=== PATIENT | female | born 1970 | race Caucasian/White ===

== ENCOUNTER → 2018-01-06 | Outpatient (CLI) | payer BC ==
--- NOTE | 2018-01-06 13:53 | MM ---
Reason for exam: screening (asymptomatic). Last mammogram was performed 7 years and 8 months ago. Physical Findings: A clinical breast exam by your physician is recommended on an annual basis and results should be correlated with mammographic findings. MG Screening Mammo w CAD Bilateral CC and MLO view(s) were taken. Prior study comparison: May 03, 2010, bilateral digital screening mammo w/CAD. August 04, 2003, bilateral mammogram, performed at [facility]. There are scattered fibroglandular densities. There is no discrete abnormality. No significant changes when compared with prior studies. ASSESSMENT: Negative, BI-RAD 1 RECOMMENDATION: Routine screening mammogram of both breasts in 1 year.
== END | disposition home or self-care (01) ==
LOC: RADMAMWWP 07:05
PROVIDERS: ATTEND Family Medicine
DX: Z12.31 Encounter for screening mammogram for malignant neoplasm of breast (principal)
CPT/HCPCS: 77067

== ENCOUNTER 2021-06-01 07:19 | Day surgery (SDC) | payer BC ==
[2021-05-30 12:44] VITALS: BMI 31.3
[~2021-06-01 07:19] MED LIST: LACTATED RINGERS 1,000 ML IV SCH; LIDOCAINE 1% (10MG/ML) FOR IV START INTRADERMA PRN; MIDAZOLAM 2 MG/2 ML VIAL IV PRN
--- NOTE | 2021-06-01 07:35 | P.GSHP ---
History of Present Illness H&P Date: 06/01/21 CHIEF COMPLAINT: Colon screen HISTORY OF PRESENT ILLNESS: The patient is a 50-year-old female who presents for colon screen. Lower endoscopy was offered for further evaluation and management. PAST MEDICAL HISTORY: Please see list. PAST SURGICAL HISTORY: Please see list. MEDICATIONS: Please see list. ALLERGIES: Please see list. SOCIAL HISTORY: No illicit drug use FAMILY HISTORY: No reports of Crohn disease or ulcerative colitis. REVIEW OF ORGAN SYSTEMS: CONSTITUTIONAL: No reports of fevers or chills. PHYSICAL EXAM: VITAL SIGNS: Stable GENERAL: Well-developed pleasant in no acute distress. HEENT: No scleral icterus. Extraocular movements grossly intact. Moist buccal mucosa. NECK: Supple without lymphadenopathy. CHEST: Unlabored respirations. Equal bilateral excursions. CARDIOVASCULAR: Regular rate and rhythm. Distal 2+ pulses. ABDOMEN: Soft, nontender, nondistended. MUSCULOSKELETAL: No clubbing, cyanosis, or edema. ASSESSMENT: 1. Colon screen. PLAN: 1. Recommend proceeding with a lower endoscopy Past Medical History Past Medical History: No Reported History History of Any Multi-Drug Resistant Organisms: None Reported Past Surgical History: Bariatric Surgery, Cholecystectomy Additional Past Surgical History / Comment(s): C-S. Dez-n-Y 2003 Past Anesthesia/Blood Transfusion Reactions: Previous Problems w/ Anesthesia, Family History of Problems w/ Anesthesia Additional Past Anesthesia/Blood Transfusion Reaction / Comment(s): Takes long time to awaken, her sisters are the same. Smoking Status: Never smoker - Past Family History Father Family Medical History: Cancer Additional Family Medical History / Comment(s): lung cancer Brother(s) Family Medical History: Deep Vein Thrombosis (DVT), Pulmonary Embolus Additional Family Medical History / Comment(s): post-op blood clots, obese Medications and Allergies Home Medications Medication Instructions Recorded Confirmed Type Glucosamine (Unknown Dose) 1 tab PO DAILY 05/30/21 History Allergies Allergy/AdvReac Type Severity Reaction Status Date / Time codeine AdvReac Nausea & Verified 05/30/21 12:20 Vomiting
[2021-06-01 07:48] VITALS: TEMP 97.4
[2021-06-01] MEDS ORDERED: PROPOFOL 10 MG/ML 20 ML VIAL IV ONE (07:59)
--- NOTE | 2021-06-01 08:31 | P.PCN ---
Date of Procedure: 06/01/21 Description of Procedure: PREOPERATIVE DIAGNOSIS: Colonoscopy screening. POSTOPERATIVE DIAGNOSIS: Colonoscopy screening. Diverticulosis, scattered. OPERATION: Colonoscopy to the cecum, ileocecal valve and appendiceal orifice. SURGEON: Modesta Hyde MD. ANESTHESIA: MAC. INDICATIONS: The patient is a 50-year-old female who presents for her first colonoscopy screening. Benefits and risks were described and informed consent was obtained. DESCRIPTION OF PROCEDURE: The patient had undergone Sutab prep. The patient had been brought into the operating room and laid in the left lateral decubitus position. After adequate intravenous sedation, the rectum was examined with 2% lidocaine jelly. No ex ternal hemorrhoids were encountered. The rectal tone was within normal limits. No lesions were palpated in the rectal vault. An Olympus colonoscope was advanced until the cecum, ileocecal valve and appendiceal orifice were clearly viewed. The prep was excellent. Scattered diverticulosis was encountered. No colonic polyps were found. No evidence of focal colitis was found. Retroflexion of the scope demonstrated grade 1 internal hemorrhoids without active bleeding or inflammation. The colon was desufflated. The patient had tolerated the procedure well. Withdrawal time was over 6 minutes. FINDINGS: Aronchick preparation quality scale 1 (1-5) Internal hemorrhoids, grade 1 No external prolapsed hemorrhoids. No arteriovenous malformations. No adenomatous polyps. No focal colitis. Scattered diverticulosis RECOMMENDATIONS: Lower endoscopy in 10 2031 Plan - Discharge Summary Discharge Rx Participant: No New Discharge Prescriptions: Continue Glucosamine (Unknown Dose) 1 tab PO DAILY Discharge Medication List Glucosamine (Unknown Dose) 1 tab PO DAILY 05/30/21 [History] Follow up Appointment(s)/Referral(s): Modesta Hyde MD [STAFF PHYSICIAN] - As Needed Patient Instructions/Handouts: Diverticulosis Diet (GEN), Diverticulosis (DC) Activity/Diet/Wound Care/Special Instructions: Repeat colonoscopy in 10 years2031 Discharge Disposition: HOME SELF-CARE
[2021-06-01 08:43] VITALS: BP 118/84; PULSE 67; RESP 16
== END 2021-06-01 09:00 | disposition home or self-care (01) ==
LOC: ORWHC2ENDO 07:19
PROVIDERS: ATTEND Surgery Plastic and Reconstructive Surgery
DX: Z12.11 Encounter for screening for malignant neoplasm of colon (principal); K57.30 Diverticulosis of large intestine without perforation or abscess without bleeding; K64.0 First degree hemorrhoids
CPT/HCPCS: J2704; G0121

== ENCOUNTER → 2023-02-18 | Outpatient (CLI) | payer BC ==
--- NOTE | 2023-02-19 21:24 | MM ---
Reason for Exam: Screening (asymptomatic). Last mammogram was performed 5 year(s) and 2 month(s) ago. Patient History: Menarche at age 10. First Full-Term at age 29. Late child-bearing (after 30). Postmenopausal. Risk Values: Enedina 5 year model risk: 1.6%. NCI Lifetime model risk: 11.4%. Prior Study Comparison: 08/04/2003 Bilateral Screening Mammogram, [facility]. 05/03/2010 Bilateral Screening Mammogram, [facility]. 01/06/2018 Bilateral Screening Mammogram, [facility]. Tissue Density: There are scattered fibroglandular densities. Findings: Analyzed By CAD. There is no suspicious group of microcalcifications or new suspicious mass in either breast. Overall Assessment: Negative, BI-RAD 1 Management: Screening Mammogram of both breasts in 1 year. . Patient should continue monthly self-breast exams. A clinical breast exam by your physician is recommended on an annual basis. This exam should not preclude additional follow-up of suspicious palpable abnormalities. Note on Enedina scores and lifetime risk: 1. A Enedina score greater than 3% is considered moderate risk. If this is the case, consider specialist referral to assess eligibility for a risk reducing agent. 2. If overall lifetime risk for the development of breast cancer is 20% or higher, the patient may qualify for future screening with alternating mammogram and breast MRI. Electronically signed and approved by: Yue Gordon M.D. Radiologist
== END | disposition home or self-care (01) ==
LOC: RADMAMWWP 14:59
PROVIDERS: ATTEND Family Medicine
DX: Z12.31 Encounter for screening mammogram for malignant neoplasm of breast (principal); Z78.0 Asymptomatic menopausal state
CPT/HCPCS: 77063; 77067

== ENCOUNTER 2023-08-28 12:26 | Inpatient (IN) | payer BC ==
--- NOTE | 2023-08-28 13:25 | CT ---
EXAMINATION TYPE: CT hip LT wo con DATE OF EXAM: 08/28/2023 COMPARISON: None HISTORY: left hip pain, no injury CT DLP: 633.1 mGycm Automated exposure control for dose reduction was used. Contrast: None Technique: Axial images 3 mm thick sections. Reconstructed images in the coronal and sagittal planes 3-D reconstructed images performed on a separate computerized technologist are reviewed. FINDINGS: There is an extremely subtle lucency extending from the greater trochanter through the intertrochante dk region that are visualized more anteriorly. A nondisplaced intertrochanteric fracture appears to be present. This may be comminuted with a nondisplaced avulsion of the greater trochanter. Correlate with patient's symptoms IMPRESSION: 1. NONDISPLACED INTERTROCHANTERIC FRACTURE. 2. THERE MAY BE NONDISPLACED FRACTURE OF THE GREATER TROCHANTER.
[2023-08-28 14:08] LABS: Basophils % (A) 1 %; Eosinophils # (A) 0.2 k/uL (0-0.7); Eosinophils % (A) 4 %; HGB 11.7 gm/dL (11.4-16.0); Lymphocytes # (A) 1.5 k/uL (1.0-4.8); Lymphocytes % (A) 31 %; MCH 32.4 pg (25.0-35.0); MCHC 33.4 g/dL (31.0-37.0); Mean Platelet Volume 8.1; Monocytes # (A) 0.3 k/uL (0-1.0); Monocytes % (A) 7 %; Neutrophils # (A) 2.7 k/uL (1.3-7.7); Neutrophils % (A) 56 %; Platelet Count 264 k/uL (150-450); RBC 3.61 m/uL (3.80-5.40); RDW 12.4 % (11.5-15.5); WBC 4.9 k/uL (3.8-10.6)
[2023-08-28] MEDS ORDERED: NALOXONE 0.4 MG/ML 1 ML VIAL IV PRN (14:25)
--- NOTE | 2023-08-28 14:25 | ED ---
Lower Extremity Injury HPI - General Chief Complaint: Extremity Injury, Lower Stated Complaint: L Broken Hip Time Seen by Provider: 08/28/23 12:35 Source: patient Mode of arrival: ambulatory Limitations: no limitations - History of Present Illness Initial Comments: 53-year-old female who presents to the emergency department reporting left hip pain. States that the pain has been going on for the past 3 weeks and started while she was exercising. She denies any trauma. Patient has been taking pain medications and muscle relaxers however that has not helped her symptoms. Patient traveled to [facility] for vacation and was seen by a physician there for cortisone shot. She reports this also did not help her symptoms. She followed with Dr. Guerrero this morning where an x-ray was completed and he was concerned for hip fracture. Patient was transferred to our facility for CT. - Related Data Home Medications Medication Instructions Recorded Confirmed Naltrexone HCl/Bupropion HCl 2 tab PO BID 08/28/23 08/28/23 [Contrave ER 8-90 mg Tablet] Previous Rx's Medication Instructions Recorded Aspirin 81 mg PO BID #60 tab 08/29/23 Docusate [Colace] 100 mg PO BID #60 capsule 08/29/23 HYDROcodone/APAP 5-325MG [[place] 1 - 2 tab PO Q6HR PRN #32 tab 08/29/23 5-325] Ergocalciferol [Vitamin D2 (1250 1,250 mcg PO Q7D 6 Days #6 cap 08/30/23 Mcg = 01276 Iu)] Allergies Allergy/AdvReac Type Severity Reaction Status Date / Time codeine AdvReac Nausea & Verified 08/28/23 14:15 Vomiting Review of Systems ROS Statement: Those systems with pertinent positive or pertinent negative responses have been documented in the HPI. ROS Other: All systems not noted in ROS Statement are negative. Past Medical History Past Medical History: No Reported History History of Any Multi-Drug Resistant Organisms: None Reported Past Surgical History: Bariatric Surgery, Cholecystectomy Additional Past Surgical History / Comment(s): Cassie Dez-n-Y 2003 Past Anesthesia/Blood Transfusion Reactions: Previous Problems w/ Anesthesia, Family History of Problems w/ Anesthesia Additional Past Anesthesia/Blood Transfusion Reaction / Comment(s): Takes long time to awaken, her sisters are the same. Smoking Status: Never smoker Past Alcohol Use History: None Reported Past Drug Use History: None Reported - Past Family History Father Family Medical History: Cancer Additional Family Medical History / Comment(s): lung cancer Brother(s) Family Medical History: Deep Vein Thrombosis (DVT), Pulmonary Embolus Additional Family Medical History / Comment(s): post-op blood clots, obese General Exam Limitations: no limitations General appearance: alert, in no apparent distress Head exam: Present: atraumatic, normocephalic, normal inspection Eye exam: Present: normal appearance, PERRL, EOMI. Absent: scleral icterus, conjunctival injection, periorbital swelling ENT exam: Present: normal exam, mucous membranes moist Neck exam: Present: normal inspection. Absent: tenderness, meningismus, lymphadenopathy Respiratory exam: Present: normal lung sounds bilaterally. Absent: respiratory distress, wheezes, rales, rhonchi, stridor Cardiovascular Exam: Present: regular rate, normal rhythm, normal heart sounds. Absent: systolic murmur, diastolic murmur, rubs, gallop, clicks GI/Abdominal exam: Present: soft, normal bowel sounds. Absent: distended, tenderness, guarding, rebound, rigid Extremities exam: Present: tenderness (To palpation of the left hip and inguinal region. Decreased range of motion due to pain), normal capillary refill. Absent: pedal edema, joint swelling, calf tenderness Back exam: Present: normal inspection Neurological exam: Present: alert, oriented X3, CN II-XII intact Psychiatric exam: Present: normal affect, normal mood Skin exam: Present: warm, dry, intact, normal color. Absent: rash Course Vital Signs 08/28/23 08/28/23 12:33 15:56 Temperature 98.2 F Pulse Rate 79 81 Respiratory 18 14 Rate Blood Pressure 121/71 123/74 O2 Sat by Pulse 99 99 Oximetry Medical Decision Making - Medical Decision Making Was pt. sent in by a medical professional or institution (, PA, [employer], urgent care, hospital, or alf...) When possible be specific @ -Patient was sent in by Dr. Guerrero Did you speak to anyone other than the patient for history (EMS, parent, family, police, friend...)? What history was obtained from this source @ -No Did you review nursing and triage notes (agree or disagree)? Why? @ -I reviewed and agree with nursing and triage notes Were old charts reviewed (outside hosp., previous admission, EMS record, old EKG, old radiological studies, urgent care reports/EKG's, alf records)? Report findings @ -No old charts were reviewed Differential Diagnosis (chest pain, altered mental status, abdominal pain women, abdominal pain men, vaginal bleeding, weakness, fever, dyspnea, syncope, headache, dizziness, GI bleed, back pain, seizure, CVA, palpatations, mental health, musculoskeletal)? @ -Differential Musculoskeletal Muscular strain, contusion, ligament sprain, fracture, arthritis, septic arthritis, bursitis, cellulitis, muscle spasm, nerve compression, DVT, arterial occlusion, herpes zoster, electrolyte abnormality, tumor.... This is not meant to be in all inclusive list EKG interpreted by me (3pts min.). @ -Not done X-rays interpreted by me (1pt min.). @ -Yes and demonstrates left hip fracture CT interpreted by me (1pt min.). @ -None done U/S interpreted by me (1pt. min.). @ -None done What testing was considered but not performed or refused? (CT, X-rays, U/S, labs)? Why? @ -None What meds were considered but not given or refused? Why? @ -None Did you discuss the management of the patient with other professionals (professionals i.e. , PA, [employer], lab, RT, psych nurse, social sciences department chair, escrow officer, teacher, physics technical officer, residential case manager)? Give summary @ -Spoke with Dr. Guerrero who will admit the patient to his service Was smoking cessation discussed for >3mins.? @ -No Was critical care preformed (if so, how long)? @ -No Were there social determinants of health that impacted care today? How? (Homelessness, low income, unemployed, alcoholism, drug addiction, transportation, low edu. Level, literacy, decrease access to med. care, chcf, rehab)? @ -No Was there de-escalation of care discussed even if they declined (Discuss DNR or withdrawal of care, Hospice)? DNR status @ -No What co-morbidities impacted this encounter? (DM, HTN, Smoking, COPD, CAD, Cancer, CVA, ARF, Chemo, Hep., AIDS, mental health diagnosis, sleep apnea, morbid obesity)? @ -None Was patient admitted / discharged? Hospital course, mention meds given and route, prescriptions, significant lab abnormalities, going to OR and other p ertinent info. @ -Upon arrival patient seen and evaluated in room 23. Thorough history and physical exam was performed. CT was obtained. Called and spoke with Dr. Guerrero who will admit the patient Undiagnosed new problem with uncertain prognosis? @ -No Drug Therapy requiring intensive monitoring for toxicity (Heparin, Nitro, Insulin, Cardizem)? @ -No Were any procedures done? @ -No Diagnosis/symptom? @ -Acute left hip pain, acute left hip fracture Acute, or Chronic, or Acute on Chronic? @ -Acute Uncomplicated (without systemic symptoms) or Complicated (systemic symptoms)? @ -Complicated Side effects of treatment? @ -No Exacerbation, Progression, or Severe Exacerbation? @ -No Poses a threat to life or bodily function? How? (Chest pain, USA, PA, pneumonia, PE, COPD, DKA, ARF, appy, cholecystitis, CVA, Diverticulitis, Homicidal, Suicidal, threat to staff... and all critical care pts) @ -No - Lab Data Result diagrams: 08/30/23 14:52 08/31/23 10:01 Lab Results 08/28/23 08/28/23 08/28/23 Range/Units 13:52 13:52 13:52 WBC 4.9 (3.8-10.6) k/uL RBC 3.61 L (3.80-5.40) m/uL Hgb 11.7 (11.4-16.0) gm/dL Hct 35.0 (34.0-46.0) % MCV 97.0 (80.0-100.0) fL MCH 32.4 (25.0-35.0) pg MCHC 33.4 (31.0-37.0) g/dL RDW 12.4 (11.5-15.5) % Plt Count 264 (150-450) k/uL MPV 8.1 Neutrophils % 56 % Lymphocytes % 31 % Monocytes % 7 % Eosinophils % 4 % Basophils % 1 % Neutrophils # 2.7 (1.3-7.7) k/uL Lymphocytes # 1.5 (1.0-4.8) k/uL Monocytes # 0.3 (0-1.0) k/uL Eosinophils # 0.2 (0-0.7) k/uL Basophils # 0.0 (0-0.2) k/uL APTT 22.7 (22.0-30.0) sec Sodium 132 L (137-145) mmol/L Potassium 4.9 (3.5-5.1) mmol/L Chloride 102 (98-107) mmol/L Carbon Dioxide 25 (22-30) mmol/L Anion Gap 5 mmol/L BUN 14 (7-17) mg/dL Creatinine 0.52 (0.52-1.04) mg/dL Est GFR (CKD-EPI)AfAm >90 (>60 ml/min/1.73 sqM) Est GFR (CKD-EPI)NonAf >90 (>60 ml/min/1.73 sqM) Glucose 82 (74-99) mg/dL Calcium 9.4 (8.4-10.2) mg/dL Total Bilirubin 0.9 (0.2-1.3) mg/dL AST 34 (14-36) U/L ALT 21 (4-34) U/L Alkaline Phosphatase 88 (38-126) U/L Total Protein 7.0 (6.3-8.2) g/dL Albumin 4.0 (3.5-5.0) g/dL Disposition Clinical Impression: Intertrochanteric fracture of left hip Disposition: ADMITTED IP TO THIS HOSP Condition: Stable Is patient prescribed a controlled substance at d/c from ED?: No Time of Disposition: 14:25 Decision to Admit Reason: Admit from EC Decision Date: 08/28/23 Decision Time: 14:25
[2023-08-28 14:35] LABS: ALT 21 U/L (4-34); African American GFR (CKD) >90 (>60 ml/min/1.73 sqM); Anion Gap 5 mmol/L; Blood Urea Nitrogen 14 mg/dL (7-17); Calcium 9.4 mg/dL (8.4-10.2); Carbon Dioxide 25 mmol/L (22-30); Chloride 102 mmol/L (98-107); Glucose 82 mg/dL (74-99); Non-African American GFR(CKD) >90 (>60 ml/min/1.73 sqM); Sodium 132 mmol/L (137-145); Total Bilirubin 0.9 mg/dL (0.2-1.3)
[2023-08-28 14:53] LABS: AST 34 U/L (14-36); Potassium 4.9 mmol/L (3.5-5.1)
[2023-08-28 14:54] LABS: Alkaline Phosphatase 88 U/L (38-126)
[2023-08-28] MEDS: MORPHINE SULFATE 4 MG/ML SYRINGE IV PRN (16:20)
[2023-08-28] MEDS: HYDROcodone/APAP 5-325MG 1 EACH TAB PO PRN (17:46)
--- NOTE | 2023-08-28 19:15 | US ---
EXAMINATION TYPE: US venous doppler duplex LE DATE OF EXAM: 08/28/2023 4:24 PM COMPARISON: NONE CLINICAL INDICATION: Female, 53 years old with history of rule out DVT, subacute hip fracture; Fractu red hip, pain SIDE PERFORMED: Bilateral TECHNIQUE: The lower extremity deep venous system is examined utilizing real time linear array sonog marty with graded compression, doppler sonography and color-flow sonography. VESSELS IMAGED: Common Femoral Vein Deep Femoral Vein Greater Saphenous Vein * Femoral Vein Popliteal Vein Small Saphenous Vein * Proximal Calf Veins (* superficial vessels) Right Leg: Negative for DVT Left Leg: Negative for DVT IMPRESSION: Grayscale, color doppler, spectral doppler imaging performed of the deep veins of the lo wer extremities. There is normal flow, compressibility, vascular waveforms.
[2023-08-28] MEDS: HYDROmorphone 1 MG/ML 1 ML SYRINGE IVP PRN (22:35)
[2023-08-29] MEDS: SODIUM CHLORIDE 0.9% 1,000 ML IV SCH ×2 (08:43→22:03)
--- NOTE | 2023-08-29 09:35 | P.HPOR ---
History of Present Illness the patient is a very pleasant relatively healthy 53-year-old female who has had 2 weeks of atraumatic left hip pain. The patient states that she has been working out to lose weight but denies any specific injury. Despite the intr actable pain in her hip she went on vacation to [facility] last week and was essentially wheelchair-bound. She presented to my office yesterday where x-rays showed a displaced hip fracture. She was sent as a direct admit to the emergency department. I met with the patient in the hospital to discuss her computed tomography scan and treatment options. Past Medical History Past Medical History: No Reported History History of Any Multi-Drug Resistant Organisms: None Reported Past Surgical History: Bariatric Surgery, Cholecystectomy Additional Past Surgical History / Comment(s): Cassie Marinellix-n-Elder 2003 Past Anesthesia/Blood Transfusion Reactions: Previous Problems w/ Anesthesia, Family History of Problems w/ Anesthesia, Postoperative Nausea & Vomiting (PONV) Additional Past Anesthesia/Blood Transfusion Reaction / Comment(s): Takes long time to awaken, her sisters are the same. Smoking Status: Never smoker Past Alcohol Use History: None Reported Past Drug Use History: None Reported - Past Family History Father Family Medical History: Cancer Additional Family Medical History / Comment(s): lung cancer Brother(s) Family Medical History: Deep Vein Thrombosis (DVT), Pulmonary Embolus Additional Family Medical History / Comment(s): post-op blood clots, obese Medications and Allergies Home Medications Medication Instructions Recorded Confirmed Type Naltrexone HCl/Bupropion HCl 2 tab PO BID 08/28/23 08/28/23 History [Contrave ER 8-90 mg Tablet] Allergies Allergy/AdvReac Type Severity Reaction Status Date / Time codeine AdvReac Nausea & Verified 08/28/23 14:15 Vomiting Physical Examination the patient is resting comfortably in her hospital bed. She is alert and able to answer questions. Her head is normocephalic and atraumatic. Her cervical spine is nontender and midline. She damages nonlabored breathing with symmetric chest expansion. Her abdomen is soft and mildly obese. She has palpable peripheral pulses. Exam of the bilateral upper extremities and right lower extremity show no obvious deformities and no pain or tenderness. A focused exam of the left lower extremity was conducted. On inspection there are no skin lesions or scars. She has exquisite pain with any attempts at passive range of motion of the left hip. She is tender over the greater trochanter. Her thigh and calf are soft. She is able to actively plantar flex and dorsiflex her ankle and her toes. Sensation is intact to light touch throughout the left foot. The foot is warm and well perfused with brisk capillary refill Results x-rays from my office and computed tomography scan from the hospital show a minimally displaced and impacted basocervical intertrochanteric hip fracture. - Labs Labs: Abnormal Lab Results - Last 24 Hours (Table) 08/28/23 08/28/23 Range/Units 13:52 13:52 RBC 3.61 L (3.80-5.40) m/uL Sodium 132 L (137-145) mmol/L H & H 08/28/23 Range/Units 13:52 Hgb 11.7 (11.4-16.0) gm/dL Hct 35.0 (34.0-46.0) % Result Diagrams: 08/28/23 13:52 08/28/23 13:52 Assessment and Plan Assessment: subacute left basicervical hip fracture Plan: I long discussion with the patient both in the office and hospital on treatment options. She has a subacute hip fracture. Based on the location of the fracture it appears to be extracapsular. My recommendation was to perform an attempt at closed reduction and placement of intramedullary hip screw. We dis cussed the procedure at length including the potential risks and complications. The patient understands the possibility of these complications and provided both her verbal and written consent to go forward with surgery. She'll remain strictly nonweightbearing and on bedrest until surgery. Internal medicine is been consulted for perioperative medical management. Time with Patient: Greater than 30
[2023-08-29] MEDS: hydrOXYzine pamoate 25 MG CAP PO PRN (10:38)
[2023-08-29 10:47] LABS: BUN/Creat Ratio 18.57 Ratio (12.00-20.00); Calcium 9.3 mg/dL (8.7-10.3); Carbon Dioxide 22.6 mmol/L (21.6-31.8); Chloride 101 mmol/L (96-109); Glucose 92 mg/dL (70-110); Potassium 4.4 mmol/L (3.5-5.5); Sodium 135 mmol/L (135-145)
[2023-08-29 10:52] LABS: Basophils # (A) 0.02 X 10*3/uL (0.00-0.10); Basophils % (A) 0.4 %; Eosinophils # (A) 0.14 X 10*3/uL (0.04-0.35); Eosinophils % (A) 2.9 %; HCT 33.2 % (37.2-46.3); Lymphocytes % (A) 18.8 %; MCH 32.3 pg (27.0-32.0); MCHC 33.1 g/dL (32.0-37.0); MCV 97.4 FL (80.0-97.0); Mean Platelet Volume 10.7 FL (9.5-12.2); Monocytes # (A) 0.42 X 10*3/uL (0.20-1.00); Monocytes % (A) 8.8 %; NRBC Per 100 WBC 0 X 10*3/uL (0.00-0.01); Neutrophils # (A) 3.29 X 10*3/uL (1.80-7.70); Neutrophils % (A) 68.9 %; Platelet Count 244 X 10*3/uL (140-440); RBC 3.41 X 10*6/uL (4.10-5.20); RDW 12.3 % (11.5-14.5); WBC 4.78 X 10*3/uL (4.50-10.00)
--- NOTE | 2023-08-29 12:28 | P.CONS ---
History of Present Illness - Reason for Consult Consult date: 08/29/23 Medical Pre-op Clearance and medical post-op managment Requesting physician: José Luis Guerrero - History of Present Illness History of Presenting Illness: Patient is a pleasant 53-year-old female with no reported past medical history. She presented to the emergency department on 08/28/2023 secondary to reports of left hip pain and inability to ambulate. Patient reports recently starting a workout program running on treadmill and weightlifting as directed by her personal lines advisor. She states she traveled to [facility] and left hip pain worsened resulting in worsening inability to ambulate. Patient denies having any injuries or falls or any other complaints at this time. Upon arrival to our facility, patient underwent evaluation in the emergency department. Vital signs upon arrival show blood pressure 121/71, heart rate 79, respiratory rate 18, temp 98.2 F, and SpO2 of 99% on room air. CT left hip completed showing a nondisplaced intertrochanteric fracture of left hip. Bilateral lower extremity Dopplers were completed negative for DVT. EKG completed showing normal sinus rhythm at 77 bpm inversion in inferior leads III otherwise showing no significant T wave or ST abnormalities showing no signs of acute ischemia. Labs were completed and reviewed. CBC unremarkable. PTT normal findings. BMP revealed mild hyponatremia with sodium of 132 otherwise normal findings. Liver profile unremarkable. Patient admitted under orthopedic surgery team and we were consulted for medical clearance and postoperative medical management. Review of systems: Pertinent positives and negatives as discussed in HPI, a complete review of systems was performed and all other systems are negative. Physical exam: Vital signs reviewed and stable. General: Nontoxic, no distress and appears stated age. Derm: Skin warm and dry, normal coloration for ethnicity. Head: Atraumatic, normocephalic and symmetric. Eyes: EOMs intact, no lid lag, and anicteric sclera Mouth: no lip lesions, mucus membranes moist Cardiovascular: regular rate and rhythm with normal S1S2, no murmur, positive posterior tibial pulses bilaterally, and cap refill < 2 seconds. Lungs: Respirations even, regular, and unlabored on room air. Lungs CTA bilaterally, no rhonchi, no rales, no wheezing, and no accessory muscle usage. Abdominal: soft, nontender to palpation, no guarding, no appreciable organomegaly Ext: No gross muscle atrophy, no edema, no contractures. Movement and sensation intact. Neuro: Speech clear, face symmetrical and CN II-XII grossly intact with no noted focal neuro deficits Psych: Alert and oriented to person, place, time, and situation. Appropriate and pleasant affect. Assessment and Plan of Care: Presurgical clearance: Nontraumatic displaced left hip METS greater than 4. NSQIP surgical risk calculator scoring completed. Patient at a below average risk to undergo left hip gamma nail insertion for displaced left hip fracture. NSQIP surgical risk showing patient at a below average risk at 3.1% with average risk being 8.5% for serious complications, below average risk at 0.1% with average risk of 1.2% for cardiac complications, and a below average risk of 0.8% with average risk of 3.3% for . As stated above, patient had a below average risk to proceed with recommended gamma nail insertion for displaced left hip fracture. Patient is medically optimized for surgery at this time with no need for further testing. Abnormal EKG EKG showing inferior T wave inversion in leads III otherwise normal findings. Patient free from any cardiac complaints. Hyponatremia Continue gentle IV fluid hydration with 0.9% normal saline at 100 cc/h. Data and Imaging reviewed: As stated above in HPI. Thank you for allowing us to participate in the care of this pleasant patient. Do not hesitate to contact us with questions. Someone can be reached from the [facility] hospitalist group all hours of the day at [phone] or via EV Connect. Patient was seen independently by Nurse Practitioner. This document was prepared using [employer] dictation software. Please allow for errors in career orientation teacher while rare they do occur. I reviewed the documentation as provided by the BREANA above, who is the original author of this note. I agree with the documented assessment and plan, with the following changes: none Past Medical History Past Medical History: No Reported History History of Any Multi-Drug Resistant Organisms: None Reported Past Surgical History: Bariatric Surgery, Cholecystectomy Additional Past Surgical History / Comment(s): Cassie Dez-n-Y 2003 Past Anesthesia/Blood Transfusion Reactions: Previous Problems w/ Anesthesia, Family History of Problems w/ Anesthesia, Postoperative Nausea & Vomiting (PONV) Additional Past Anesthesia/Blood Transfusion Reaction / Comm: Takes long time to awaken, her sisters are the same. Smoking Status: Never smoker Past Alcohol Use History: None Reported Past Drug Use History: None Reported - Past Family History Father Family Medical History: Cancer Additional Family Medical History / Comment(s): lung cancer Brother(s) Family Medical History: Deep Vein Thrombosis (DVT), Pulmonary Embolus Additional Family Medical History / Comment(s): post-op blood clots, obese Medications and Allergies Home Medications Medication Instructions Recorded Confirmed Type Naltrexone HCl/Bupropion HCl 2 tab PO BID 08/28/23 08/28/23 History [Contrave ER 8-90 mg Tablet] Aspirin 81 mg PO BID #60 tab 08/29/23 Rx Docusate [Colace] 100 mg PO BID #60 capsule 08/29/23 Rx HYDROcodone/APAP 5-325MG [[place] 1 - 2 tab PO Q6HR PRN #32 tab 08/29/23 Rx 5-325] Ergocalciferol [Vitamin D2 (1250 1,250 mcg PO Q7D 6 Days #6 cap 08/30/23 Rx Mcg = 79199 Iu)] Allergies Allergy/AdvReac Type Severity Reaction Status Date / Time codeine AdvReac Nausea & Verified 08/28/23 14:15 Vomiting Physical Exam Vitals: Vital Signs Temp Pulse Pulse Pulse Resp BP BP 08/29/23 06:59 98.7 F 78 18 120/85 08/29/23 00:57 98.2 F 77 17 109/73 08/28/23 21:07 98.1 F 68 15 101/64 08/28/23 15:56 81 14 123/74 08/28/23 12:33 98.2 F 79 18 121/71 Pulse Ox 08/29/23 06:59 98 08/29/23 00:57 98 08/28/23 21:07 94 L 08/28/23 15:56 99 08/28/23 12:33 99 Intake and Output 08/28/23 08/29/23 08/29/23 22:59 06:59 14:59 Output Total 032 447 8718 Balance -750 -950 -1200 Output: Urine 059 571 5024 Other: Voiding Method Indwelling Catheter Weight 77.111 kg Results CBC & Chem 7: 08/30/23 14:52 08/31/23 10:01 Labs: Abnormal Lab Results - Last 24 Hours (Table) 08/28/23 08/28/23 08/29/23 Range/Units 13:52 13:52 06:47 RBC 3.61 L 3.41 L (3.80-5.40) m/uL Hgb 11.0 L (12.0-15.0) g/dL Hct 33.2 L (37.2-46.3) % MCV 97.4 H (80.0-97.0) FL MCH 32.3 H (27.0-32.0) pg Sodium 132 L (137-145) mmol/L
[2023-08-29] MEDS: NON FORMULARY DRUG (Naltrexone Hcl/Bupropion Hcl [Contrave Er 8-90 Mg Tablet] 1 EACH Table PO SCH (12:43)
[2023-08-29] MEDS: ONDANSETRON 4 MG/2 ML VIAL IVP STA (16:05)
[2023-08-29] MEDS: LACTATED RINGERS 1,000 ML BAG IV STA (16:05)
[2023-08-29] MEDS: MIDAZOLAM 2 MG/2 ML VIAL IV ONE (16:06)
[2023-08-29] MEDS: DEXAMETHASONE SOD PHOSPHATE 4 MG/ML 1 ML VIAL IVP STA (16:06)
[2023-08-29] MEDS: IV FLUID CONTINUATION 1,000 ML IV ONE (16:18)
[2023-08-29] MEDS ORDERED: PROPOFOL 10 MG/ML 20 ML VIAL IV ONE (17:03)
[2023-08-29] MEDS ORDERED: NEOSTIGMINE 1 MG/ML 10 ML VIAL ONE (17:03)
[2023-08-29] MEDS ORDERED: HYDROmorphone (PF) 1 MG/ML ONE (17:03)
[2023-08-29] MEDS ORDERED: ROCURONIUM 10 MG/ML (5 ML VIAL) IV ONE (17:03)
[2023-08-29] MEDS ORDERED: ROPIVACAINE 5 MG/ML 30 ML VIAL ONE (17:03)
[2023-08-29] MEDS ORDERED: fentaNYL (PF) 50 MCG/ML 2 ML AMP ONE (17:03)
[2023-08-29] MEDS ORDERED: ceFAZolin 1 GM/50 ML BAG (PMX) ONE (17:03)
[2023-08-29] MEDS ORDERED: LIDOCAINE 1% INJ 10MG/ML (20 ML MDV) ONE (17:03)
[2023-08-29] MEDS ORDERED: DEXAMETHASONE SOD PHOSPHATE 4 MG/ML 1 ML VIAL ONE (17:03)
[2023-08-29] MEDS ORDERED: MIDAZOLAM 2 MG/2 ML VIAL ONE (17:03)
[2023-08-29] MEDS ORDERED: GLYCOPYRROLATE 0.2 MG/ML 2 ML VIAL ONE (17:03)
[2023-08-29] MEDS ORDERED: TRANEXAMIC 1,000 MG/100ML-NACL PREMIX BAG ONE (17:03)
[2023-08-29] MEDS ORDERED: SUCCINYLCHOLINE CHLORIDE 200 MG/10 ML VIAL IV ONE (17:03)
[2023-08-29] MEDS: SODIUM CHLORIDE 0.9% 50 ML with ceFAZolin 2,000 MG IV ONE (17:07)
[2023-08-29] MEDS ORDERED: HYDROmorphone 1 MG/ML 1 ML SYRINGE IVP PRN (18:24)
[2023-08-29] MEDS ORDERED: MAGNESIUM HYDROXIDE 2,400 MG/30 ML CUP PO PRN (18:24)
[2023-08-29] MEDS ORDERED: ONDANSETRON 4 MG/2 ML VIAL IVP PRN (18:24)
[2023-08-29] MEDS ORDERED: NALOXONE 0.4 MG/ML 1 ML VIAL IV PRN (18:24)
--- NOTE | 2023-08-29 18:24 | P.OP ---
Date of Procedure: 08/29/23 Preoperative Diagnosis: Subacute left basicervical hip fracture Postoperative Diagnosis: Same Procedure(s) Performed: Operative fixation of left intertrochanteric hip fracture with short intramedullary hip screw Implants: Chatom gamma nail Anesthesia: YOSVANYA Surgeon: José Luis Guerrero Bird Tender #1: Nolan Nixon Estimated Blood Loss (ml): 100 IV fluids (ml): 500 Pathology: none sent Condition: stable Disposition: PACU Indications for Procedure: The patient is a very pleasant reveals a healthy 53-year-old female whose had 2 weeks of atraumatic and progressively worsening left hip pain. She had difficulty walking and essentially became wheelchair bound. She presented to my office where x-rays showed a minimally displaced basicervical hip fracture. She was sent to the emergency department as a direct admission and a computed tomography scan was obtained. The computed tomography scan showed an extracapsular minimally displaced basicervical hip fracture. I met with the patient and her significant other discuss treatment options. Due to the location of the fracture, minimal hip arthritis, and her young age I recommended operative stabilization with a cephalo-medullary nail. We discussed the potential risks and complications of this surgical procedure including but certainly not limited to risks from anesthesia, superficial infection, deep infection, fracture nonunion, fracture malunion, hardware failure including broken hardware, varus collapse with lag screw cut out of the femoral head, progression of hip arthritis, limb length discrepancy, symptomatic hardware, need for further surgery including hardware removal and conversion to arthroplasty, DVT, PE, acute coronary event, pressure ulcers, urinary tract infection, failure to thrive, an inability to regain preinjury level of function, and possibly . The patient and their family understand these potential complications and also awknowledge that other less common complications are possible. They provided both their verbal and written consent to go forward with operative fixation of their hip fracture with an intramedullary hip screw. Description of Procedure: The patient was identified in preoperative holding and the correct operative extremity was marked with my initials. I reviewed the consent form with the patient and their family and all of their questions were answered. The patient was then brought back to the operating room by anesthesia. Anesthesia, preoperative antibiotics, and tranexamic acid were given by the anesthesia team while on the gurney. Both ankles were padded with webril and boots for the [place] table were applied. The patient was then carefully transferred onto the [place] table. A perineal post was immediately placed. The contralateral arm was secured on a well-padded arm springer. The ipsilateral arm was draped across the chest and secured with a pillow, foam, and paper tape to allow access to the proximal femur. Nonsterile drapes were applied to the operative extremity. The height of the table was elevated and the contralateral extremity was dropped towards the floor to facilitate imaging. A timeout was performed identifying the correct patient, operative extremity, and procedure. Fluoroscopy was brought in to assess the fracture. A provisional reduction was performed using longitudinal traction, adduction, and internal rotation. An AP and lateral view were obtained to assess the reduction. The operative extremity was then prepped and draped in the standard sterile fashion. A straight incision was made at the tip of the greater trochanter and extended proximally for 3 cm. Skin and subcutaneous tissues were incised sharply. The underlying fascia was incised in line with the skin incision. An awl was placed just medial to the tip of the greater trochanter on the AP view and colinear with the canal on the lateral view. A 3.2 mm guide pin was then advanced into the proximal femur. The position of the guidepin was verified with fluoroscopy. An opening reamer and soft tissue cannula were placed over the guidepin and used to open the proximal femur to the level of the lesser trochanter. The 3.2 mm guide pin and opening reamer were removed. A short gamma nail was dispensed, hooked up to the targeting arm and I verified that the trochar through the targeting arm lined up with the slots on the nail. The nail was then impacted into the proximal femur until the appropriate depth had been reached. A small stab incision was made over the lateral aspect of the femur using the targeting arm as a reference for the lag screw. Incision was carried down to the skin and fascia down to the lateral cortex of the femur. The trocar was then placed up to the lateral cortex of the femur and a guidepin was placed in the low center position on the AP view and centered in the femoral head on the lateral view. Once the position of the guidewire was verified, we reamed to appropriate depth and placed a lag screw over the guidewire and into the femoral head. The position of the lag screw was assessed with fluoroscopy. The guidewire was then removed from the femoral head. The set screw was placed proximally, brought fully down and then released a quarter turn to allow compression. A final stab incision was made over the lateral femur at the site of the distal interlocking screw, again using the targeting arm as a reference. The trocar and sleeve were placed to the lateral cortex of the femur. We then drilled and placed a distal interlocking screw. Final fluoroscopic images were taken showing excellent reduction of the fracture and appropriate position of the implants. All wounds were thoroughly irrigated and closed in layers. Sterile dressings were applied. The drapes were taken down, the patient was transferred off the [place] table, and was brought to recovery having tolerated the procedure well. Nolan Nixon PA-C was required as a skilled yard assistant due to the complexity of surgery for patient positioning, draping, retraction, reduction of fracture, placement of hardware, closure of wounds, and application of dressings. PLAN: The patient can weight-bear as tolerated on their operative extremity. 2 doses of postoperative antibiotics. DVT prophylaxis with aspirin 81 mg twice a day starting the day of surgery. Dressing change on postoperative day #2. Appreciate Internal Medical assistance with perioperative medical management. Discharge planning in process.
--- NOTE | 2023-08-29 18:27 | XR ---
Fluoroscopy INDICATION: Pain FINDINGS: Fluoroscopy time: 1 minute 1 seconds. Total dose area product (DAP) in uGy*m?, mGy*cm? (or similar): 2.8 x 8 by Images obtained: 6. IMPRESSION: 1. Documentation of fluoroscopy.
[2023-08-29] MEDS: HYDROmorphone 0.5 MG/0.5 ML SYRINGE IVP SCH (18:41)
[2023-08-29] MEDS: HYDROmorphone 0.5 MG/0.5 ML SYRINGE IVP PRN (18:51)
[2023-08-29] MEDS: MIDAZOLAM 2 MG/2 ML VIAL IVP ONE ×2 (19:24→19:36)
--- NOTE | 2023-08-29 19:38 | P.ANPRN ---
Procedure Note - Anesthesia - Nerve Block Performed Left Nick Single Time Out Performed: Yes Date of Procedure: 08/29/23 Procedure Start Time: 19:23 Procedure Stop Time: 19:33 Location of Patient: PreOp Indication: Acute Post-Operative Pain, Requested by Surgeon Sedation Type: Sedate with meaningful contact maintained Preparation: Sterile Prep Position: Supine Needle Types: Pajunk Needle Gauge: 21 Ultrasound used to visualize needle placement: Yes Ultrasound used to observe medication spread: Yes Blood Aspirated: No Pain Paresthesia on Injection Noted: No Resistance on Injection: Normal Image Stored and Saved: Yes Events: Uneventful and Well Tolerated (Ropivacaine 0.5% 25 cc plus dexamethasone 4 mg)
[2023-08-29 20:52] LABS: Basophils % (A) 0 %; Eosinophils % (A) 0 %; HCT 36.7 % (34.0-46.0); Lymphocytes # (A) 0.5 k/uL (1.0-4.8); Lymphocytes % (A) 7 %; MCH 32.3 pg (25.0-35.0); MCHC 32.7 g/dL (31.0-37.0); MCV 98.8 fL (80.0-100.0); Mean Platelet Volume 7.7; Monocytes # (A) 0.2 k/uL (0-1.0); Monocytes % (A) 3 %; Neutrophils # (A) 6.4 k/uL (1.3-7.7); Neutrophils % (A) 90 %; Platelet Count 217 k/uL (150-450); RBC 3.72 m/uL (3.80-5.40); RDW 12.2 % (11.5-15.5); WBC 7.1 k/uL (3.8-10.6)
--- NOTE | 2023-08-29 21:07 | XR ---
EXAMINATION TYPE: XR chest 1V portable DATE OF EXAM: 08/29/2023 8:57 PM CLINICAL INDICATION:Female, 53 years old with history of preop, hip fracture; [facility] COMPARISON: None TECHNIQUE: XR chest 1V portable Frontal view of the chest. FINDINGS: Lungs/Pleura: There is no evidence of pleural effusion, focal consolidation, or pneumothorax. Pulmonary vascularity: Unremarkable. Heart/mediastinum: Cardiomediastinal silhouette is unremarkable. Musculoskeletal: No acute osseous pathology. IMPRESSION: No acute cardiopulmonary disease/process.
[2023-08-29] MEDS: ASPIRIN 81 MG PO SCH (22:03)
[2023-08-29] MEDS: SENNOSIDES-DOCUSATE SODIUM 1 EACH TAB PO SCH (22:04)
[2023-08-30] MEDS: HYDROcodone/APAP 10-325MG 1 EACH TAB PO PRN (00:05)
[2023-08-30 08:49] VITALS: RESP 18
[2023-08-30] MEDS: ERGOCALCIFEROL 1,250 MCG (50,000 IU) CAPSULE PO SCH (10:02)
--- NOTE | 2023-08-30 10:51 | P.PN ---
Subjective Progress Note Date: 08/30/23 she was seen at bedside this morning. She is doing well. Her hip fracture pain is improved and she has thigh discomfort from surgery. She has been up with physical therapy. She denies chest pain or shortness of breath. Objective - Vital Signs Vital signs: Vital Signs Temp 98.1 F 08/30/23 07:08 Pulse 85 08/30/23 07:08 Resp 18 08/30/23 07:08 BP 131/82 08/30/23 07:08 Pulse Ox 99 08/30/23 07:08 FiO2 Intake & Output 08/29/23 08/30/23 08/30/23 18:59 06:59 18:59 Intake Total 550 Output Total 2000 900 1500 Balance -1450 -900 -1500 Intake: IV 550 Output: Urine 6048 682 9268 Uretheral (Childers) 1500 Estimated Blood Loss 100 Other: Voiding Method Indwelling Catheter Indwelling Catheter - Exam patient is sitting up at bedside in a chair. She is alert and able to answer questions. A focused exam of the left lower extremity was conducted. Her surgical dressings are intact with no drainage or strike through. Her thigh is soft and compressible. She is able to actively plantarflex and dorsiflex her ankle and her toes. Sensation is intact to light touch in her foot. - Labs CBC & Chem 7: 08/29/23 20:41 08/29/23 06:47 Labs: Abnormal Lab Results - Last 24 Hours (Table) 08/29/23 08/29/23 08/29/23 Range/Units 06:47 20:41 20:41 RBC 3.41 L 3.72 L (4.10-5.20) X 10*6/uL Hgb 11.0 L (12.0-15.0) g/dL Hct 33.2 L (37.2-46.3) % MCV 97.4 H (80.0-97.0) FL MCH 32.3 H (27.0-32.0) pg Lymphocytes # 0.5 L (1.0-4.8) k/uL Vitamin D 25-Hydroxy 21.5 L (30.0-100.0) ng/mL Assessment and Plan Assessment: Post operative day #1 status post left hip gamma nail for subacute hip fracture Plan: 1. Weight bear as tolerated on the operative extremity, up with assistance and a walker 2. DVT prophylaxis with aspirin 81 mg BID 3. 2 doses of post operative antibiotics 4. Leave surgical dressing in place 5. Internal medicine for pete-operative medical management 6. Physical therapy for gait training and mobilization 7. Dispo: Discharge home tomorrow when she clears physical therapy.
[2023-08-30 11:00] LABS: Blood Urea Nitrogen 10.2 mg/dL (9.0-27.0); Carbon Dioxide 23.2 mmol/L (21.6-31.8); Chloride 102 mmol/L (96-109); Glucose 126 mg/dL (70-110); Magnesium 1.8 mg/dL (1.5-2.4); Potassium 4.4 mmol/L (3.5-5.5); Sodium 136 mmol/L (135-145)
[2023-08-30 11:01] LABS: ALT 87 U/L (8-44); AST 86 U/L (13-35); Albumin 3.8 g/dL (3.8-4.9); Albumin/Globulin Ratio 1.36 Ratio (1.60-3.17); Alkaline Phosphatase 158 U/L (41-126); Calcium 9.3 mg/dL (8.7-10.3); Globulin 2.8 g/dL (1.6-3.3); Total Bilirubin 0.3 mg/dL (0.3-1.2); Total Protein 6.6 g/dL (6.2-8.2)
--- NOTE | 2023-08-30 14:49 | P.PN ---
Subjective Progress Note Date: 08/30/23 Hospital Course: Patient is a pleasant 53-year-old female with no reported past medical history. She presented to the emergency department on 08/28/2023 secondary to reports of left hip pain and inability to ambulate. Patient reports recently starting a workout program running on treadmill and weightlifting as directed by her animal attendants and trainers. She states she traveled to [facility] and left hip pain worsened resulting in worsening inability to ambulate. Patient denies having any injuries or falls or any other complaints at this time. Upon arrival to our facility, patient underwent evaluation in the emergency department. Vital signs upon arrival show blood pressure 121/71, heart rate 79, respiratory rate 18, temp 98.2 F, and SpO2 of 99% on room air. CT left hip completed showing a nondisplaced intertrochanteric fracture of left hip. Bilateral lower extremity Dopplers were completed negative for DVT. EKG completed showing normal sinus rhythm at 77 bpm inversion in inferior leads III otherwise showing no significant T wave or ST abnormalities showing no signs of acute ischemia. Labs were completed and reviewed. CBC unremarkable. PTT normal findings. BMP revealed mild hyponatremia with sodium of 132 otherwise normal findings. Liver profile unremarkable. Patient admitted under orthopedic surgery team and we were consulted for medical clearance and postoperative medical management. Physical exam: Patient seen and fully evaluated at bedside this morning. She is postoperative day 1 and appears to be doing well. She currently reports controlled postoperative pain and denies having any nausea, vomiting, or any other complaints at this time. Childers catheter remains in place. Vital signs reviewed and stable. General: Nontoxic, no distress and appears stated age. Derm: Skin warm and dry, normal coloration for ethnicity. Head: Atraumatic, normocephalic and symmetric. Eyes: EOMs intact, no lid lag, and anicteric sclera Mouth: no lip lesions, mucus membranes moist Cardiovascular: regular rate and rhythm with normal S1S2, no murmur, positive posterior tibial pulses bilaterally, and cap refill < 2 seconds. Lungs: Respirations even, regular, and unlabored on room air. Lungs CTA bilaterally, no rhonchi, no rales, no wheezing, and no accessory muscle usage. Abdominal: soft, nontender to palpation, no guarding, no appreciable organomegaly Ext: No gross muscle atrophy, no edema, no contractures. Movement and sensation intact. Neuro: Speech clear, face symmetrical and CN II-XII grossly intact with no noted focal neuro deficits Psych: Alert and oriented to person, place, time, and situation. Appropriate and pleasant affect. Assessment and Plan of Care: Transaminitis, unclear etiology -Suspect underlying alcohol use/abuse. Will repeat CMP tomorrow morning and follow-up with results. Vitamin D deficiency Nontraumatic left intertrochanteric displaced left hip fracture -Patient started on vitamin D 2 1250 mcg (50,000 units). Patient to take 1 tablet every 7 days for total of 7 weeks and then discussed with patient the imp ortance of taking a daily [id number] vitamin D supplement with repeat labs in 6 weeks by PCP. Status post ORIF of left intertrochanteric hip fracture with short intramedullary hip screw/gamma nail -Management per primary admitting orthopedic surgery team including DVT prophylaxis, pain management, wound/dressing management, weightbearing, and PT/OT. -Currently DVT prophylaxis with aspirin 81 mg twice daily. Abnormal EKG EKG showing inferior T wave inversion in leads III otherwise normal findings. Patient free from any cardiac complaints. Hyponatremia, resolved Continue gentle IV fluid hydration with 0.9% normal saline at 100 cc/h. Data and Imaging reviewed: Vital signs reviewed and stable. Blood pressure 131/82, heart rate 85, re spiratory rate 18, temp 98.1 F, and SpO2 of 99% on room air. Postoperative Labs completed and reviewed. BMP unremarkable. Blood glucose 126. Profile showing transaminitis with AST of 86, ALT of 87, and alkaline phosphatase of 158. Thank you for allowing us to participate in the care of this pleasant patient. Do not hesitate to contact us with questions. Someone can be reached from the [facility] hospitalist group all hours of the day at [phone] or via perfect serve. Patient was seen independently by Nurse Practitioner. This document was prepared using [employer] dictation software. Please allow for errors in collator operator while rare they do occur. I reviewed the documentation as provided by the BREANA above, who is the original author of this note. I agree with the documented assessment and plan, with the following changes: none Objective - Vital Signs Vital signs: Vital Signs Temp 98.0 F 08/30/23 00:00 Pulse 88 08/30/23 00:00 Resp 16 08/30/23 00:00 BP 127/84 08/30/23 00:00 Pulse Ox 95 08/30/23 00:00 FiO2 Intake & Output 08/29/23 08/30/23 08/30/23 18:59 06:59 18:59 Intake Total 550 Output Total 2000 900 Balance -1450 -900 Intake: IV 550 Output: Urine 1900 900 Estimated Blood Loss 100 Other: Voiding Method Indwelling Catheter - Labs CBC & Chem 7: 08/30/23 14:52 08/31/23 10:01 Labs: Abnormal Lab Results - Last 24 Hours (Table) 08/29/23 08/29/23 08/29/23 Range/Units 06:47 20:41 20:41 RBC 3.41 L 3.72 L (4.10-5.20) X 10*6/uL Hgb 11.0 L (12.0-15.0) g/dL Hct 33.2 L (37.2-46.3) % MCV 97.4 H (80.0-97.0) FL MCH 32.3 H (27.0-32.0) pg Lymphocytes # 0.5 L (1.0-4.8) k/uL Vitamin D 25-Hydroxy 21.5 L (30.0-100.0) ng/mL
[2023-08-30 15:03] LABS: HCT 33.4 % (34.0-46.0); MCH 32.1 pg (25.0-35.0); MCHC 33.1 g/dL (31.0-37.0); MCV 97.1 fL (80.0-100.0); Mean Platelet Volume 8.2; Platelet Count 262 k/uL (150-450); RBC 3.44 m/uL (3.80-5.40); RDW 12.4 % (11.5-15.5); WBC 4.8 k/uL (3.8-10.6)
[2023-08-30 15:14] LABS: ALT 69 U/L (4-34); AST 79 U/L (14-36); African American GFR (CKD) >90 (>60 ml/min/1.73 sqM); Albumin 3.5 g/dL (3.5-5.0); Albumin/Globulin Ratio 1.2; Alkaline Phosphatase 139 U/L (38-126); Anion Gap 6 mmol/L; Blood Urea Nitrogen 13 mg/dL (7-17); Calcium 9.2 mg/dL (8.4-10.2); Carbon Dioxide 22 mmol/L (22-30); Chloride 105 mmol/L (98-107); Globulin 2.9 g/dL; Glucose 108 mg/dL (74-99); Magnesium 1.8 mg/dL (1.6-2.3); Non-African American GFR(CKD) >90 (>60 ml/min/1.73 sqM); Potassium 4.1 mmol/L (3.5-5.1); Sodium 133 mmol/L (137-145); Total Bilirubin 0.5 mg/dL (0.2-1.3); Total Protein 6.4 g/dL (6.3-8.2)
[2023-08-30] MEDS: HYDROmorphone 0.5 MG/0.5 ML SYRINGE IVP PRN (22:04)
--- NOTE | 2023-08-31 08:17 | P.DS ---
Providers Date of admission: 08/28/23 14:45 Attending physician: José Luis Guerrero Consults: 08/29/23 11:32 Consult Physician Stat Consulting Provider: Bharathi Ang Reason/Comments: preop clearance Do you want consulting provider notified?: Yes Primary care physician: [facility] Course: The patient is a very pleasant relatively healthy 53-year-old female who was admitted earlier this week with a subacute hip fracture. She was cleared by internal medicine and taken to the operating room where a short gamma nail was placed. Following surgery she was admitted to the orthopedic floor under my care. She received 2 doses of postoperative antibiotics. She was transitioned from IV to oral pain medications. She worked with physical therapy. Internal medicine assisted with her perioperative medical management. She was seen on postoperative day #2 and was doing well. Her dressings were intact. Her thigh was soft. Motor and sensory function were intact in her foot. She worked with physical therapy and was cleared for discharge home. Patient Condition at Discharge: Stable Plan - Discharge Summary Discharge Rx Participant: Yes New Discharge Prescriptions: New HYDROcodone/APAP 5-325MG [[place] 5-325] 1 - 2 tab PO Q6HR PRN #32 tab PRN Reason: Pain Ergocalciferol [Vitamin D2 (1250 Mcg = 97010 Iu)] 1,250 mcg PO Q7D 6 Days #6 cap Aspirin 81 mg PO BID #60 tab Docusate [Colace] 100 mg PO BID #60 capsule Continue Naltrexone HCl/Bupropion HCl [Contrave ER 8-90 mg Tablet] 2 tab PO BID Discharge Medication List Naltrexone HCl/Bupropion HCl [Contrave ER 8-90 mg Tablet] 2 tab PO BID 08/28/23 [History] Aspirin 81 mg PO BID #60 tab 08/29/23 [Rx] Docusate [Colace] 100 mg PO BID #60 capsule 08/29/23 [Rx] HYDROcodone/APAP 5-325MG [[place] 5-325] 1 - 2 tab PO Q6HR PRN #32 tab 08/29/23 [Rx] Ergocalciferol [Vitamin D2 (1250 Mcg = 36307 Iu)] 1,250 mcg PO Q7D 6 Days #6 cap 08/30/23 [Rx] Follow up Appointment(s)/Referral(s): [facility] [NON-STAFF] - 1-2 Days ([facility] will call you to schedule your in home nursing, physical therapy, and occupational therapy visits. ) Albert Hernandez DO [Primary Care Provider] - 1-2 days José Luis Guerrero MD [Medical Doctor] - 2 Weeks Patient Instructions/Handouts: Vitamin D Deficiency (GEN) Activity/Diet/Wound Care/Special Instructions: Patient requires a hospital bed because she will require the head of the bed to be 30 degrees or more at all times which is not feasible with a normal bed to alleviate pain due to left intertrochanteric fracture. 1. Weight-bear as tolerated on your operative extremity unless instructed otherwise. Use a walker or other assistive device to ambulate. 2. Leave surgical dressing in place. If your dressing becomes saturated with blood, there is drainage, or the dressing becomes loose please contact the office. 3. It is okay to shower with your surgical dressing, but do not submerge in water (no hot tubs, bath's, swimming etc.) 4. Make sure to take her blood clot prevention medication as prescribed (aspirin, Eliquis, Xarelto, and Plavix are commonly prescribed medications for blood clot prevention) 5. While taking [place] or Percocet for pain make sure you're taking a stool softener (Colace) and drink lots of water. 6. Keep all follow-up appointments as scheduled. You will usually be seen in 1-2 weeks following surgery. 7. Please contact the office with any questions or concerns [phone] Discharge Disposition: HOME WITH HOME HEALTH SERVICES
[2023-08-31 08:58] VITALS: BP 118/82; PULSE 78; TEMP 97.7
[2023-08-31 11:14] LABS: ALT 69 U/L (4-34); AST 68 U/L (14-36); African American GFR (CKD) >90 (>60 ml/min/1.73 sqM); Albumin 3.6 g/dL (3.5-5.0); Albumin/Globulin Ratio 1.2; Alkaline Phosphatase 133 U/L (38-126); Anion Gap 4 mmol/L; Blood Urea Nitrogen 15 mg/dL (7-17); Calcium 9.4 mg/dL (8.4-10.2); Carbon Dioxide 27 mmol/L (22-30); Chloride 103 mmol/L (98-107); Glucose 89 mg/dL (74-99); Magnesium 1.8 mg/dL (1.6-2.3); Non-African American GFR(CKD) >90 (>60 ml/min/1.73 sqM); Potassium 4.1 mmol/L (3.5-5.1); Sodium 134 mmol/L (137-145); Total Bilirubin 0.6 mg/dL (0.2-1.3); Total Protein 6.6 g/dL (6.3-8.2)
--- NOTE | 2023-08-31 12:09 | P.PN ---
Subjective Progress Note Date: 08/31/23 Hospital Course: Patient is a pleasant 53-year-old female with no reported past medical history. She presented to the emergency department on 08/28/2023 secondary to reports of left hip pain and inability to ambulate. Patient reports recently starting a workout program running on treadmill and weightlifting as directed by her personal care aid. She states she traveled to [facility] and left hip pain worsened resulting in worsening inability to ambulate. Patient denies having any injuries or falls or any other complaints at this time. Upon arrival to our facility, patient underwent evaluation in the emergency department. Vital signs upon arrival show blood pressure 121/71, heart rate 79, respiratory rate 18, temp 98.2 F, and SpO2 of 99% on room air. CT left hip completed showing a nondisplaced intertrochanteric fracture of left hip. Bilateral lower extremity Dopplers were completed negative for DVT. EKG completed showing normal sinus rhythm at 77 bpm inversion in inferior leads III otherwise showing no significant T wave or ST abnormalities showing no signs of acute ischemia. Labs were completed and reviewed. CBC unremarkable. PTT normal findings. BMP revealed mild hyponatremia with sodium of 132 otherwise normal findings. Liver profile unremarkable. Patient admitted under orthopedic surgery team and we were consulted for medical clearance and postoperative medical management. Physical exam: Patient seen and fully evaluated at bedside this morning. She is postoperative day 2 and appears to be doing well and reports looking forward to going home. Vital signs reviewed and stable. General: Nontoxic, no distress and appears stated age. Derm: Skin warm and dry, normal coloration for ethnicity. Head: Atraumatic, normocephalic and symmetric. Eyes: EOMs intact, no lid lag, and anicteric sclera Mouth: no lip lesions, mucus membranes moist Cardiovascular: regular rate and rhythm with normal S1S2, no murmur, positive posterior tibial pulses bilaterally, and cap refill < 2 seconds. Lungs: Respirations even, regular, and unlabored on room air. Lungs CTA bilaterally, no rhonchi, no rales, no wheezing, and no accessory muscle usage. Abdominal: soft, nontender to palpation, no guarding, no appreciable organomegaly Ext: No gross muscle atrophy, no edema, no contractures. Movement and sensation intact. Neuro: Speech clear, face symmetrical and CN II-XII grossly intact with no noted focal neuro deficits Psych: Alert and oriented to person, place, time, and situation. Appropriate and pleasant affect. Assessment and Plan of Care: Transaminitis, likely secondary to history of alcohol use. -Suspect underlying alcohol use. Pt denies abdominal pain or discomfort and reports history of heavy drinking, quitting completely March this year. Liver enzymes stable. Vitamin D deficiency Nontraumatic left intertrochanteric displaced left hip fracture -Patient started on vitamin D 2 1250 mcg (50,000 units). Patient to take 1 t ablet every 7 days for total of 7 weeks and then discussed with patient the importance of taking a daily [id number] vitamin D supplement with repeat labs in 6 weeks by PCP. Status post ORIF of left intertrochanteric hip fracture with short intramedullary hip screw/gamma nail -Management per primary admitting orthopedic surgery team including DVT prophylaxis, pain management, wound/dressing management, weightbearing, and PT/OT. -Currently DVT prophylaxis with aspirin 81 mg twice daily. Abnormal EKG EKG showing inferior T wave inversion in leads III otherwise normal findings. Patient free from any cardiac complaints. Hyponatremia, resolved Continue gentle IV fluid hydration with 0.9% normal saline at 100 cc/h. Data and Imaging reviewed: Vital signs reviewed and stable. Blood pressure 118/82, heart rate 78, respiratory rate 18, temp 97.7 F, and SpO2 of 100% on room air. Repeat morning labs drawn. Liver enzymes remain elevated but stable with AST of 68, ALT of 69, and alkaline phosphatase of 133. Patient cleared from medical perspective for discharge recommend continued outpatient follow-up with her PCP. Patient may be discharged once cleared by primary admitting orthopedic surgery team. Thank you for allowing us to participate in the care of this pleasant patient. Do not hesitate to contact us with questions. Someone can be reached from the [facility] hospitalist group all hours of the day at [phone] or via [employer]. Patient was seen independently by Nurse Practitioner. This document was prepared using [employer] dictation software. Please allow for errors in handling tech while rare they do occur. I reviewed the documentation as provided by the BREANA above, who is the original author of this note. I agree with the documented assessment and plan, with the following changes: none Objective - Vital Signs Vital signs: Vital Signs Temp 97.8 F 08/31/23 02:27 Pulse 82 08/31/23 02:27 Resp 18 08/31/23 02:27 BP 101/68 08/31/23 02:27 Pulse Ox 98 08/31/23 02:27 FiO2 Intake & Output 08/30/23 08/31/23 08/31/23 18:59 06:59 18:59 Output Total 1500 Balance -1500 Output: Urine 1500 Uretheral ([place]) 1500 Other: Voiding Method Indwelling Catheter # Voids 1 1 - Labs CBC & Chem 7: 08/30/23 14:52 08/31/23 10:01 Labs: Abnormal Lab Results - Last 24 Hours (Table) 08/30/23 08/30/23 08/30/23 Range/Units 07:22 14:52 14:52 RBC 3.44 L (3.80-5.40) m/uL Hgb 11.0 L (11.4-16.0) gm/dL Hct 33.4 L (34.0-46.0) % Sodium 133 L (137-145) mmol/L Glucose 126 H 108 H (70-110) mg/dL AST 86 H 79 H (13-35) U/L ALT 87 H 69 H (8-44) U/L Alkaline Phosphatase 158 H 139 H (41-126) U/L Albumin/Globulin Ratio 1.36 L (1.60-3.17) Ratio
== END 2023-08-31 14:14 | disposition home health service (06) | DRG 481 ==
LOC: EC 12:26 → 4SSUR 14:45
PROVIDERS: ADMIT Orthopaedic Surgery; ATTEND Orthopaedic Surgery
PROC: 0QS736Z Reposition Left Upper Femur with Intramedullary Internal Fixation Device, Percutaneous Approach (ICD-10-PCS; principal; 2023-08-29 09:45)
DX: S72.142A Displaced intertrochanteric fracture of left femur, initial encounter for closed fracture (principal); E87.1 Hypo-osmolality and hyponatremia; Z28.310 Unvaccinated for COVID-19; R74.01 Elevation of levels of liver transaminase levels; E55.9 Vitamin D deficiency, unspecified; Z79.899 Other long term (current) drug therapy; Z99.3 Dependence on wheelchair; Z98.84 Bariatric surgery status; X50.3XXA Overexertion from repetitive movements, initial encounter; Z88.5 Allergy status to narcotic agent
CPT/HCPCS: 36415; 64447; 71045; 73502; 80048; 80053; 82306; 83735; 85025; 85027; 85730; 93005; 93970; 99285

== ENCOUNTER → 2024-05-22 | Outpatient (CLI) | payer BC ==
--- NOTE | 2024-05-22 11:48 | MM ---
Reason for Exam: Screening (asymptomatic). Last mammogram was performed 1 year(s) and 3 month(s) ago. Patient History: Menarche at age 10. First Full-Term at age 29. Late child-bearing (after 28). Postmenopausal. Risk Values: Enedina 5 year model risk: 1.6%. NCI Lifetime model risk: 11.2%. Prior Study Comparison: 05/03/2010 Bilateral Screening Mammogram, [facility]. 01/06/2018 Bilateral Screening Mammogram, [facility]. 02/18/2023 Bilateral MG 3D screening mammo w/cad, [facility]. Tissue Density: There are scattered areas of fibroglandular density. Findings: Analyzed By CAD. There is no suspicious group of microcalcifications or new suspicious mass in either breast. Overall Assessment: Negative, BI-RAD 1 Management: Screening Mammogram of both breasts in 1 year. . Patient should continue monthly self-breast exams. A clinical breast exam by your physician is recommended on an annual basis. This exam should not preclude additional follow-up of suspicious palpable abnormalities. Note on Enedina scores and lifetime risk: 1. A Enedina score greater than 3% is considered moderate risk. If this is the case, consider specialist referral to assess eligibility for a risk reducing agent. 2. If overall lifetime risk for the development of breast cancer is 20% or higher, the patient may qualify for future screening with alternating mammogram and breast MRI. [facility], , 05/22/2024 11:45 AM. Electronically signed and approved by: Dat Gill M.D. [facility]
== END | disposition home or self-care (01) ==
LOC: RADMAMWWP 09:45
PROVIDERS: ATTEND Family Medicine
DX: Z12.31 Encounter for screening mammogram for malignant neoplasm of breast (principal); R92.323 Mammographic fibroglandular density, bilateral breasts; Z78.0 Asymptomatic menopausal state
CPT/HCPCS: 77063; 77067